=== PATIENT | male | born 1950 | race Hispanic/Latino ===

== ENCOUNTER 2023-02-19 06:26 | Day surgery (SDC) | payer OTHER ==
[2023-02-17 11:37] LABS: BASOPHILS # (AUTO) 0.04 K/uL (0.00-0.20); BASOPHILS % (AUTO) 0.7 % (0.0-5.0); EOSINOPHILS # (AUTO) 0.22 K/uL (0.00-0.70); EOSINOPHILS % (AUTO) 3.6 % (0.0-8.0); HEMATOCRIT 38.7 % (42-54); IMMATURE GRANULOCYTE ABSOLUTE 0.02 K/uL (0-1); LYMPHOCYTES # (AUTO) 0.9 K/uL (1.0-4.8); LYMPHOCYTES % (AUTO) 15.5 % (21.0-51.0); MEAN CORPUSCULAR HEMOGLOBIN 31.1 pg (27.0-33.0); MEAN CORPUSCULAR HGB CONC 34.1 g/dL (32.0-36.0); MEAN CORPUSCULAR VOLUME 91.1 fL (79-99); MONOCYTES # (AUTO) 0.4 K/uL (0.1-1.0); MONOCYTES % (AUTO) 6.3 % (3.0-13.0); NEUTROPHILS # (AUTO) 4.5 K/uL (1.8-7.7); NEUTROPHILS % (AUTO) 73.6 % (40.0-77.0); PLATELET COUNT (AUTO) 169 K/uL (130-400); RED BLOOD CELL COUNT(AUTO) 4.25 MIL/uL (4.50-6.20); RED CELL DISTRIBUTION WIDTH 12.5 % (11.0-15.5); WHITE BLOOD COUNT (AUTO) 6.1 K/uL (4.8-10.8)
[2023-02-17 11:52] LABS: BILIRUBIN,TOTAL 1.5 mg/dL (0.2-1.0); CREATININE 1.2 mg/dL (0.5-1.5); POTASSIUM 4.1 mmol/L (3.5-5.1); TOTAL PROTEIN, SERUM 7.3 g/dL (6.0-8.3)
[2023-02-17 12:25] VITALS: BP 131/72; PULSE 68; RESP 20
[2023-02-19] VITALS (18 sets, daily range): BP systolic 121–137; BP diastolic 52–66; PULSE 63–76; RESP 15–20
[~2023-02-19] VITALS: Ht 172.7 cm; Wt 97.3 kg
[~2023-02-19 06:26] MED LIST: ACET-2079 PO; ATOR40TA69 PO; CHOL100040 PO; DOCU100T PO; FERR-72 PO; KETO.5OS OD; LOSA100T59 PO; METF-446 PO; TAMS-1 PO; XALA2.5OS OD
[2023-02-19] MEDS ORDERED: CEFAZOLIN SODIUM 2 GM VIAL ONE (06:31)
[2023-02-19] MEDS ORDERED: 0.9%NACL 1000ML 1,000 ML IV ONE (06:31)
[2023-02-19] MEDS ORDERED: VITAMIN B12 PO (06:54)
[2023-02-19] MEDS ORDERED: PROPOFOL 10 MG/ML 20ML VIAL IV ONE (06:59)
[2023-02-19] MEDS ORDERED: ROCURONIUM 10MG/1ML SYR 10 MG/ML ML ONE (06:59)
[2023-02-19] MEDS ORDERED: SUCCINYLCHOLINE 200MG/10ML SYR ONE (06:59)
[2023-02-19] MEDS ORDERED: LIDOCAINE PF 100MG/5ML (2%) SYRINGE 5ML ONE (06:59)
[2023-02-19] MEDS ORDERED: FENTANYL CITRATE PF 50 MCG/1 ML 2ML VIAL ONE ×2 (06:59→10:51)
[2023-02-19] MEDS ORDERED: MIDAZOLAM HCL 1 MG/ML 2ML VIAL ONE (06:59)
[2023-02-19] MEDS ORDERED: DEXAMETHASONE SOD PHOSPHATE 10MG/ML 1ML VIAL ONE (06:59)
[2023-02-19] MEDS ORDERED: ONDANSETRON 4MG INJ ONE (06:59)
[2023-02-19] MEDS ORDERED: INDOCYANINE GREEN 25 MG VIAL IJ ONE (07:07)
[2023-02-19] MEDS ORDERED: BUPIVACAINE/PF 0.25% 30ML VIAL IJ ONE ×4 (08:03→11:00)
[2023-02-19] MEDS ORDERED: IOHEXOL-350 50ML VIAL IV ONE ×3 (08:05→11:00)
[2023-02-19] MEDS ORDERED: EPINEPHRINE PF 1MG (1:1,000) 1 MG/ML AMP ONE (08:08)
[2023-02-19] MEDS ORDERED: BUPIVACAINE/PF 0.5% 30ML VIAL ONE (08:08)
[2023-02-19] MEDS ORDERED: GLYCOPYRROLATE 1 MG/5 ML SYRINGE ONE (11:52)
[2023-02-19] MEDS ORDERED: NEOSTIGMINE 5MG/5ML SYR IV ONE (11:52)
[2023-02-19] MEDS ORDERED: MEPERIDINE-PF 25 MG/ML SYG ONE (12:00)
[2023-02-19] MEDS ORDERED: ONDANSETRON 4MG INJ IVP PRN (12:30)
[2023-02-19] MEDS ORDERED: LACTATED RINGERS 1000ML 1,000 ML IV SCH (12:30)
[2023-02-19] MEDS ORDERED: MORPHINE 4 MG SYG IV PRN (12:30)
[2023-02-19] MEDS ORDERED: HYDROCODONE/ACETAMINOPHEN 5/325 MG TAB PO PRN (12:30)
[2023-02-19] MEDS ORDERED: FAMOTIDINE 20MG VIAL IV SCH (21:00)
== END 2023-02-19 14:05 | disposition home or self-care (01) ==
LOC: DAH 06:26
PROVIDERS: ATTEND Surgery
DX: K81.1 Chronic cholecystitis (principal); Z20.822 Contact with and (suspected) exposure to COVID-19; K82.A1 Gangrene of gallbladder in cholecystitis; D64.9 Anemia, unspecified; M19.90 Unspecified osteoarthritis, unspecified site; E78.00 Pure hypercholesterolemia, unspecified; Z79.899 Other long term (current) drug therapy; Z98.49 Cataract extraction status, unspecified eye; Z98.890 Other specified postprocedural states; Z80.0 Family history of malignant neoplasm of digestive organs
CPT/HCPCS: 80053; 85025; 86850; 86900; 86901; 36415; 93005; 47563; 82948 ×2; 88304; 74300; A6260; A4663; J7030 ×2; J3010 ×2; J0330; J3490 ×3; J1100; J2710; J2001; J2250; J2704; J2405; J2175; Q9967 ×2; J0690; A4353; C1769 ×3; A4649 ×2; A4215; A4223; A4222; A4221; A4600; J0171

== ENCOUNTER → 2023-05-21 | Outpatient (CLI) | payer OTHER ==
[~2023-05-21] MED LIST changes: +VITAMIN B12 PO
== END | disposition home or self-care (01) ==
LOC: RAH 12:43
PROVIDERS: ATTEND Chiropractor
DX: I11.9 Hypertensive heart disease without heart failure (principal); E11.9 Type 2 diabetes mellitus without complications
CPT/HCPCS: 93306